=== PATIENT | female | born 1975 | race Hispanic/Latino ===

== ENCOUNTER → 2018-07-07 15:00 | Outpatient (CLI) | payer OTHER, SELFPAY ==
--- NOTE | 2018-07-07 15:03 | DI.MG.S_ITS ---
BILATERAL DIGITAL SCREENING MAMMOGRAM 3D/2D WITH CAD WITH AUGMENTATION: 07/07/2018 CLINICAL: Routine screening. Family history of breast cancer. Comparison is made to exam dated: 07/04/2017 mammogram - [facility]. The tissue of both breasts is heterogeneously dense. This may lower the sensitivity of mammography. Current study was also evaluated with a Computer Aided Detection (CAD) system. There are a grouped fine calcifications in the left breast posterior depth lateral region seen on the craniocaudal view only. No other significant masses, calcifications, or other findings are seen in either breast. IMPRESSION: INCOMPLETE: NEEDS ADDITIONAL IMAGING EVALUATION The grouped fine calcifications in the left breast are indeterminate. Mediolateral, spot magnification, and additional views are recommended. This exam was interpreted at Station ID: [id number]. NOTE: For mammograms, a report in lay terms will be sent to the patient. Approximately 15% of breast malignancies will not be visualized mammographically. In the management of a palpable breast mass, a negative mammogram must not discourage biopsy of a clinically suspicious lesion. Electronically Signed By: Rl viramontes/gavi:07/07/2018 16:36:24 letter sent: Additional Imaging Needed ACR BI-RADS Category 0: Incomplete 3340F
== END ==
DX: Z12.31 Encounter for screening mammogram for malignant neoplasm of breast (principal); Z80.3 Family history of malignant neoplasm of breast
CPT/HCPCS: 77063; 77067

== ENCOUNTER → 2018-07-25 08:27 | Outpatient (CLI) | payer OTHER, SELFPAY ==
--- NOTE | 2018-07-25 08:27 | DI.MG.S_ITS ---
UNILATERAL LEFT DIGITAL DIAGNOSTIC MAMMOGRAM 3D/2D WITH ADDITIONAL VIEWS: 07/25/2018 CLINICAL: Additional evaluation requested from prior study. Comparison is made to exams dated: 07/07/2018 mammogram - [facility] and 07/04/2017 mammogram - [facility]. The tissue of left breast is heterogeneously dense. This may lower the sensitivity of mammography. There are 0.3 cm grouped punctate calcifications in the left breast at 5 o'clock posterior depth which were not seen until recent screening mammogram. No other significant masses or calcifications are seen in the breast. IMPRESSION: PROBABLY BENIGN The 0.3 cm grouped punctate calcifications in the left breast are probably benign. A follow-up left mammogram in 6 months is recommended to demonstrate stability. Of note, the patient reports that she will be having her implants removed in the upcoming months. If there is a clinical requirement to have histological diagnosis before planned surgery, a stereotactic guided biopsy may be considered. This exam was interpreted at Station ID: [id number]. NOTE: For mammograms, a report in lay terms will be sent to the patient. Approximately 15% of breast malignancies will not be visualized mammographically. In the management of a palpable breast mass, a negative mammogram must not discourage biopsy of a clinically suspicious lesion. Electronically Signed By: Curt South M.D. aty/:07/25/2018 11:48:19 letter sent: Followup Recommended ACR BI-RADS Category 3: Probably benign 3343F
== END ==
DX: R92.1 Mammographic calcification found on diagnostic imaging of breast (principal)
CPT/HCPCS: 77065; G0279

== ENCOUNTER → 2019-01-06 13:52 | Outpatient (CLI) | payer OTHER, SELFPAY ==
--- NOTE | 2019-01-06 | DI.MG.S_ITS ---
UNILATERAL LEFT DIGITAL DIAGNOSTIC MAMMOGRAM 3D/2D WITH AUGMENTATION: 01/06/2019 CLINICAL: Patient returns for a 6 month follow up of the left breast. Comparison is made to exams dated: 07/25/2018 mammogram, 07/07/2018 mammogram - [facility], and 07/04/2017 mammogram - [facility]. The tissue of left breast is heterogeneously dense. This may lower the sensitivity of mammography. Previously identified grouped punctate calcifications in the left breast posterior depth lateral region best seen on the craniocaudal view remain stable to prior comparison mammograms of 07/25/18 and 07/07/18. No mammographic findings to explain patient's reported occasional diffuse left breast pain. IMPRESSION: PROBABLY BENIGN 1) Previously identified grouped punctate calcifications in the left breast posterior depth lateral region best seen on the craniocaudal view remain stable to prior comparison mammograms of 07/25/18 and 07/07/18. A follow-up mammogram and possible ultrasound in 6 months is recommended to demonstrate stability. Patient will be due for bilateral screening mammography at that time as well. The patient was advised to monitor her breasts and to return sooner for reevaluation if she feels anything grow or change in her breasts. 2) No mammographic findings to explain patient's reported occasional diffuse left breast pain. Recomend clinical follow-up for further evaluation and management of the patient's symptoms. A breast MRI is recommended for further evaluation if there is continued clinical concern. These results and recommendations were discussed with the patient by telephone at the time of the exam by Dr. Stock. This exam was interpreted at Station ID: [id number]. NOTE: For mammograms, a report in lay terms will be sent to the patient. Approximately 15% of breast malignancies will not be visualized mammographically. In the management of a palpable breast mass, a negative mammogram must not discourage biopsy of a clinically suspicious lesion. Electronically Signed By: Ayan Stock M.D. ecl/:01/06/2019 16:07:51 copy to: Migel Danielle letter sent: Followup Recommended ACR BI-RADS Category 3: Probably benign 3343F
== END ==
DX: R92.8 Other abnormal and inconclusive findings on diagnostic imaging of breast (principal); R92.1 Mammographic calcification found on diagnostic imaging of breast
CPT/HCPCS: 77065; G0279

== ENCOUNTER → 2019-02-12 16:04 | Outpatient (CLI) | payer OTHER, SELFPAY ==
--- NOTE | 2019-02-12 16:06 | DI.MRI.S_ITS ---
BREAST MRI OF BOTH BREASTS- WITH AUGMENTATION: 02/12/2019 CLINICAL: Left breast pain and calcifications. PROCEDURE: MR BREAST BI WO/W CON INDICATIONS: History of left breast calcifications seen on diagnostic mammography. Also reports left breast pain for multiple months involving the entire lateral aspect of the left breast and occasionally radiating through the entire left breast. Bilateral screening mammogram of 07/07/18 identified grouped fine calcifications in the left breast posterior depth lateral region which persisted on diagnostic mammogram of 07/25/18, and for which 6 month followup mammogram was recommended. These calcifications reportedly remained stable on comparison left breast diagnostic mammogram of 01/06/19, and for which continued 6 month followup was recommended. No mammographic findings were identified to explain patient's reported left breast pain at that time. TECHNIQUE: The patient was placed prone in a dedicated breast imaging coil. Precontrast axial STIR and 3D FLASH without fat saturation sequences were obtained. Both before and after bolus injection of contrast, sequential 1-minute axial 3D FLASH with fat saturation sequences for 3 time points, with subtraction images and maximum intensity projections (MIP's) generated. Delayed sagittal FLASH images with fat saturation were also obtained. 20 cc of ProHance intravenous contrast were utilized for this exam. Computer-aided detection, including computer algorithm analysis of MRI image data for lesion detection and characterization, pharmacokinetic analysis, with further physician review for interpretation, was performed. COMPARISON: [facility], DIAGNOSTIC MAMMO IMPLANT LT, 01/06/2019, 14:48. [facility], SPECIAL VIEW LT, 07/25/2018, 8:58. [facility], SCREENING MAMMO IMPLANT BI, 07/07/2018, 15:27. Outside Facility, [facility] SCREENING IMPL BI, 07/04/2017, 15:43. FINDINGS: Image quality: Excellent. There is moderate background parenchymal enhancement. Right breast: There is a retropectoral silicone implant with prominent radial folds and findings suggestive of small intracapsular ruptures. There is mildly increased T2 signal greatest within the medial right breast suggestive of soft tissue edema. There are small oval circumscribed T2 hyperintense foci in the inferior medial right breast posterior depth consistent with nonenlarged intramammary lymph nodes. No suspicious masses or non-mass enhancement is identified. Left breast: There is a retropectoral silicone implant with prominent radial folds and findings findings suggestive of small intracapsular ruptures. There is mildly increased T2 signal greatest within the medial left breast suggestive of soft tissue edema. No suspicious masses or non-mass enhancement is identified. There are no MRI findings to correlate with the previously identified calcifications of the left breast posterior depth lateral region, although these calcifications may be too small to evaluate by MRI. Miscellaneous: No axillary or internal mammary lymphadenopathy. IMPRESSION: PROBABLY BENIGN 1. No MRI findings to correlate with the previously identified calcifications of the left breast posterior depth lateral region seen on comparison mammograms of 07/07/18, 07/25/18, and 01/06/19, which may be too small to evaluate by MRI. Continue mammographic followup recommended, next due in July 2019. The patient is advised to monitor her breast and to return sooner for reevaluation should she feel anything grow or change. 2. Bilateral retropectoral silicone implants with findings suggestive of small intracapsular ruptures (with small extracapsular ruptures/leaks not excluded by this exam). 3. Findings suggestive of mild bilateral breast edema, greatest in the medial regions of the breasts bilaterally. This may be related/reactive to the small implant leaks described above. Clinical followup for further evaluation and management recommended. BIRADS: 3. Probably benign. Follow-up diagnostic mammogram due in July 2019; bilateral mammography will be due at that time as well. COMMENT: The imaging literature indicates that a negative contrast breast MRI examination has a high sensitivity and a moderate specificity for detecting and excluding invasive carcinomas to a detection threshold of 3-5 mm; nonetheless, appropriate clinical and mammographic follow-up are recommended. MRI is not sensitive for detecting DCIS (ductal carcinoma in situ) and may not detect large invasive neoplasms that show only minimal enhancement such as mucinous carcinoma. If there are suspicious calcifications or clinically worrisome palpable masses, then biopsy should still be considered. Invasive neoplasms can be hidden by co-existent and benign enhancement caused by mastitis, hormone therapy effects, radiation therapy, , and recent biopsy or surgery. False positive examinations can occur in a number of circumstances, including breasts that have recently been subject to invasive procedures and those that contain atypical ductal hyperplasia, hormonally stimulated glandular tissue, fat necrosis, or radial scars. This exam was interpreted at Station ID: [id number]. Electronically Signed By: Ayan Stock M.D. ecl/:02/16/2019 11:21:36 copy to: Migel Danielle letter sent: Followup Recommended ACR BI-RADS Category 3: Probably benign 9039P
== END ==
PROVIDERS: PCP Internal Medicine
DX: R92.8 Other abnormal and inconclusive findings on diagnostic imaging of breast (principal); R92.1 Mammographic calcification found on diagnostic imaging of breast; N64.4 Mastodynia; Z98.82 Breast implant status
CPT/HCPCS: 77049; A9579

== ENCOUNTER → 2019-06-04 10:19 | Outpatient (CLI) | payer BC, SELFPAY ==
[2019-06-04 10:54] LABS: Hemoglobin 13.4 g/dL (12.0-16.0); Mean Corpuscular HGB Conc 33.6 % (30-36); Mean Corpuscular Hemoglobin 32.3 PG (26-34); Mean Corpuscular Volume 96.3 fL (80-100); Platelet Count 248 X10^3/uL (150-400); Red Blood Cell Count 4.15 X10^6/uL (4.0-5.2); Red Cell Distribution Width 13.8 % (11.6-14.8); White Blood Cell Count 3.1 X10^3/uL (4.5-11.0)
[2019-06-04 11:19] LABS: Neutrophils Absolute Manual 1643 /uL (3000-5900); RBC Morphology Normal Morphology; Total Cells Counted 100
[2019-06-04 11:24] LABS: Alanine Aminotransferase 13 IU/L (<35); Albumin 4.4 g/dL (3.5-5.0); Albumin Globulin Ratio 1.5 (1.0-2.8); Alkaline Phosphatase 60 U/L (38-126); Aspartate Aminotransferase 23 IU/L (14-36); BUN Creatinine Ratio 15.6 (6-22); Bilirubin Total 0.6 mg/dL (0.2-1.3); Blood Urea Nitrogen 14 mg/dL (7-17); Calcium 9.5 mg/dL (8.4-10.2); Carbon Dioxide 28 mmol/L (22-32); Chloride 103 mmol/L (98-107); Cholesterol 174 mg/dL (140-199); Estimated Glomerular Filt Rate > 60.0 mL/min (>60); Globulin 2.9 g/dL (1.7-4.1); Glucose 84 mg/dL (70-100); HDL Cholesterol 79 mg/dL (40-60); HEMOLYSIS < 15 (0-50); LDL Cholesterol Calculated 83 mg/dL (<100); Sodium 137 mmol/L (137-145); Total Protein 7.3 g/dL (6.3-8.2); Triglycerides 58 mg/dL (35-150)
[2019-06-04 11:42] LABS: Free T3, Triiodothyronine Free 2.52 pg/mL (2.77-5.27)
[2019-06-04 11:55] LABS: Thyroid Stimulating Hormone 2.09 uIU/mL (0.47-4.68)
== END ==
PROVIDERS: PCP Nurse Practitioner; Visit Provider Nurse Practitioner
DX: Z00.00 Encounter for general adult medical examination without abnormal findings (principal)
CPT/HCPCS: 36415; 80053; 80061; 84439; 84443; 84481; 85025

== ENCOUNTER → 2019-07-17 08:09 | Outpatient (CLI) | payer BC, SELFPAY ==
--- NOTE | 2019-07-17 08:10 | DI.MG.S_ITS ---
BILATERAL DIGITAL DIAGNOSTIC MAMMOGRAM 3D/2D WITH AUGMENTATION: 07/17/2019 CLINICAL: Short term follow up left breast. Comparison is made to exams dated: 01/06/2019 mammogram, 07/25/2018 mammogram, 07/07/2018 mammogram - [facility], and 07/04/2017 mammogram - [facility]. The tissue of both breasts is heterogeneously dense. This may lower the sensitivity of mammography. There are 0.3 cm grouped punctate calcifications in the left breast at 5 o'clock posterior depth. These are not significantly changed. No other significant masses, calcifications, or other findings are seen in either breast. IMPRESSION: PROBABLY BENIGN The 0.3 cm grouped punctate calcifications in the left breast are probably benign. A follow-up left mammogram in 6 months is recommended to demonstrate stability. This exam was interpreted at Station ID: [id number]. NOTE: For mammograms, a report in lay terms will be sent to the patient. Approximately 15% of breast malignancies will not be visualized mammographically. In the management of a palpable breast mass, a negative mammogram must not discourage biopsy of a clinically suspicious lesion. Electronically Signed By: Curt michelle/gavi:07/17/2019 09:54:14 copy to: VENECIA POWELL letter sent: Followup Recommended ACR BI-RADS Category 3: Probably benign 3343F
== END ==
PROVIDERS: PCP Nurse Practitioner; Referring Provider Nurse Practitioner; Visit Provider Nurse Practitioner
DX: R92.8 Other abnormal and inconclusive findings on diagnostic imaging of breast (principal); R92.1 Mammographic calcification found on diagnostic imaging of breast; T85.43XA Leakage of breast prosthesis and implant, initial encounter; M25.511 Pain in right shoulder; M25.512 Pain in left shoulder; M54.9 Dorsalgia, unspecified
CPT/HCPCS: 77066; G0279

== ENCOUNTER → 2019-12-31 08:54 | Outpatient (CLI) | payer BC, SELFPAY ==
--- NOTE | 2019-12-31 09:07 | DI.MG.S_ITS ---
Patient Name: AUGUST PELAYO date: 1975 Sex: F Attending Physician: Shashi Indications: Date: 12/31/2019 08:57 At the request of: JOHANNY PRESSLEY Procedure: MM diagnostic mammo unilat LT UNILATERAL LEFT DIGITAL DIAGNOSTIC MAMMOGRAM 3D/2D SHORT-TERM FOLLOWUP: 12/31/2019 CLINICAL: Patient returns for a 6 month follow up of the left breast. Comparison is made to exams dated: 07/17/2019 mammogram, 02/12/2019 breast MRI, 07/25/2018 mammogram, and 07/07/2018 mammogram - [facility]. The tissue of left breast is heterogeneously dense. This may lower the sensitivity of mammography. There are grouped fine calcifications in the left breast at 5 o'clock posterior depth. These are not significantly changed. No other significant masses or calcifications are seen in the breast. IMPRESSION: PROBABLY BENIGN The grouped fine calcifications in the left breast are probably benign. A follow-up mammogram in 6 months is recommended. A follow-up mammogram in 6 months is recommended to demonstrate stability. Patient will be due for screening mammography of the contralateral breast at that time. This exam was interpreted at Station ID: [id number]. NOTE: For mammograms, a report in lay terms will be sent to the patient. Approximately 15% of breast malignancies will not be visualized mammographically. In the management of a palpable breast mass, a negative mammogram must not discourage biopsy of a clinically suspicious lesion. Electronically Signed By: Rl Underwood M.D. ddp/:12/31/2019 09:53:20 copy to: VENECIA POEWLL Continued Report - Page 2 of 2 Patient Name: AUGUST PELAYO date: 1975 Sex: F Attending Physician: Shashi Indications: Date: 12/31/2019 08:57 At the request of: JOHANNY PRESSLEY Procedure: MM diagnostic mammo unilat LT letter sent: Followup Recommended ACR BI-RADS Category 3: Probably benign 3343F
[2019-12-31 10:35] LABS: Hematocrit 36.4 % (36-46); Hemoglobin 12.2 g/dL (12.0-16.0); Mean Corpuscular HGB Conc 33.6 % (30-36); Mean Corpuscular Hemoglobin 31.9 PG (26-34); Mean Corpuscular Volume 94.8 fL (80-100); Platelet Count 245 X10^3/uL (150-400); Red Blood Cell Count 3.84 X10^6/uL (4.0-5.2); Red Cell Distribution Width 13.9 % (11.6-14.8); White Blood Cell Count 3.5 X10^3/uL (4.5-11.0)
[2019-12-31 11:20] LABS: Free T3, Triiodothyronine Free 2.73 pg/mL (2.77-5.27); Free T4, Direct Thyroxine 0.77 ng/dL (0.78-2.19)
[2019-12-31 11:33] LABS: Thyroid Stimulating Hormone 1.82 uIU/mL (0.47-4.68)
== END ==
PROVIDERS: PCP Nurse Practitioner; Referring Provider Nurse Practitioner; Visit Provider Nurse Practitioner
DX: R92.8 Other abnormal and inconclusive findings on diagnostic imaging of breast (principal); R92.1 Mammographic calcification found on diagnostic imaging of breast; D70.9 Neutropenia, unspecified; R79.89 Other specified abnormal findings of blood chemistry
CPT/HCPCS: 36415; 77065; 84439; 84443; 84481; 85027; G0279

== ENCOUNTER → 2020-04-19 13:12 | Outpatient (CLI) | payer BC, SELFPAY | PROVIDERS: PCP Nurse Practitioner; Referring Provider Nurse Practitioner; Visit Provider Nurse Practitioner | DX: Z78.0 Asymptomatic menopausal state (principal) | CPT/HCPCS: 77080 ==

== ENCOUNTER → 2020-04-21 13:46 | Outpatient (CLI) | payer BC, SELFPAY ==
[2020-04-21 14:47] LABS: Add Manual Diff / Slide Review NO; Basophils Absolute Auto 0 /uL (0-100); Basophils Percent Auto 0.8 % (0-2); Eosinophils Absolute Auto 0 /uL (0-450); Eosinophils Percent Auto 0.7 % (2-4); Hematocrit 38.7 % (36-46); Hemoglobin 12.6 g/dL (12.0-16.0); Lymphocytes Absolute Auto 1800 /uL (1100-4500); Lymphocytes Percent Auto 37.6 % (25-40); Mean Corpuscular HGB Conc 32.5 % (30-36); Mean Corpuscular Hemoglobin 30.9 PG (26-34); Mean Corpuscular Volume 95.2 fL (80-100); Monocytes Absolute Auto 500 /uL (0-900); Monocytes Percent Auto 9.7 % (3-14); Neutrophils Absolute Auto 2400 /uL (1500-7000); Neutrophils Percent Auto 51.2 % (50-75); Platelet Count 240 X10^3/uL (150-400); Red Blood Cell Count 4.06 X10^6/uL (4.0-5.2); Red Cell Distribution Width 13.5 % (11.6-14.8); White Blood Cell Count 4.7 X10^3/uL (4.5-11.0)
== END ==
PROVIDERS: PCP Nurse Practitioner; Referring Provider Nurse Practitioner; Visit Provider Nurse Practitioner
DX: D72.819 Decreased white blood cell count, unspecified (principal)
CPT/HCPCS: 36415; 85025

== ENCOUNTER → 2020-06-21 13:21 | Outpatient (CLI) | payer OTHER, SELFPAY ==
--- NOTE | 2020-06-21 13:24 | DI.MG.S_ITS ---
BILATERAL DIGITAL DIAGNOSTIC MAMMOGRAM 3D/2D SHORT-TERM FOLLOW-UP: 06/21/2020 CLINICAL: Short term follow up of the left breast, due for bilateral imaging. Comparison is made to exams dated: 12/31/2019 mammogram, 07/17/2019 mammogram, 01/06/2019 mammogram, 07/25/2018 mammogram, and 07/07/2018 mammogram - [facility]. The tissue of both breasts is heterogeneously dense. This may lower the sensitivity of mammography. There are benign grouped fine calcifications in the left breast at 5 o'clock posterior depth. These are less prominent. There also is a benign asymmetry in the left breast at 1 o'clock anterior depth. This is not seen in additional views. No other significant masses, calcifications, or other findings are seen in either breast. IMPRESSION: BENIGN There is no mammographic evidence of malignancy. Return to annual mammogram screening schedule is recommended. This exam was interpreted at Station ID: [id number]. NOTE: For mammograms, a report in lay terms will be sent to the patient. Approximately 15% of breast malignancies will not be visualized mammographically. In the management of a palpable breast mass, a negative mammogram must not discourage biopsy of a clinically suspicious lesion. Electronically Signed By: Adams Delong acr/:06/22/2020 11:03:00 copy to: VENECIA POWELL letter sent: Normal Exam ACR BI-RADS Category 2: Benign Finding(s) 3342F
== END ==
PROVIDERS: PCP Nurse Practitioner; Referring Provider Nurse Practitioner; Visit Provider Nurse Practitioner
DX: R92.8 Other abnormal and inconclusive findings on diagnostic imaging of breast (principal)
CPT/HCPCS: 77066; G0279

== ENCOUNTER → 2021-07-04 17:07 | Outpatient (CLI) | payer OTHER, SELFPAY ==
--- NOTE | 2021-07-04 | DI.MG.S_ITS ---
BILATERAL DIGITAL SCREENING MAMMOGRAM 3D/2D WITH CAD: 07/04/2021 CLINICAL: Routine screening. Family history of breast cancer. Comparison is made to exams dated: 06/21/2020 mammogram, 07/17/2019 mammogram, 01/06/2019 mammogram, 07/07/2018 mammogram, and 12/31/2019 mammogram - [facility]. The tissue of both breasts is heterogeneously dense. This may lower the sensitivity of mammography. Current study was also evaluated with a Computer Aided Detection (CAD) system. There is a biopsy clip in the left breast. No significant masses, calcifications, or other findings are seen in either breast. There has been no significant interval change. IMPRESSION: NEGATIVE There is no mammographic evidence of malignancy. A 1 year screening mammogram is recommended. This exam was interpreted at Station ID: [id number]. NOTE: For mammograms, a report in lay terms will be sent to the patient. Approximately 15% of breast malignancies will not be visualized mammographically. In the management of a palpable breast mass, a negative mammogram must not discourage biopsy of a clinically suspicious lesion. Electronically Signed By: Von ackerman/gavi:07/05/2021 14:29:09 copy to: VENECIA POWELL letter sent: Normal Exam ACR BI-RADS Category 1: Negative 3341F
== END ==
PROVIDERS: PCP Nurse Practitioner; Referring Provider Nurse Practitioner; Visit Provider Nurse Practitioner
DX: Z12.31 Encounter for screening mammogram for malignant neoplasm of breast (principal); Z80.3 Family history of malignant neoplasm of breast
CPT/HCPCS: 77063; 77067

== ENCOUNTER → 2022-05-15 07:26 | Outpatient (CLI) | payer BC, SELFPAY ==
[2022-05-15 08:23] LABS: Influenza A - CEPHEID Flu A NEGATIVE (NEGATIVE); Influenza B - CEPHEID Flu B NEGATIVE (NEGATIVE); Respiratory Syncytial Virus Negative (Negative)
[2022-05-15 08:28] LABS: COVID-19 CEPHEID 4-PLEX PCR Negative (Negative)
== END ==
PROVIDERS: PCP Nurse Practitioner; Visit Provider Registered Nurse
DX: R05.1 Acute cough (principal); Z20.822 Contact with and (suspected) exposure to COVID-19
CPT/HCPCS: 0241U

== ENCOUNTER → 2022-07-11 15:14 | Outpatient (CLI) | payer BC, SELFPAY ==
--- NOTE | 2022-07-11 | DI.MG.S_ITS ---
BILATERAL DIGITAL SCREENING MAMMOGRAM 3D/2D WITH CAD: 07/11/2022 CLINICAL: Routine screening. Family history of breast cancer. Comparison is made to exams dated: 07/04/2021 mammogram, 06/21/2020 mammogram, 07/17/2019 mammogram, and 07/07/2018 mammogram - [facility]. Both breasts are heterogeneously dense, which may obscure small masses (category c / 51-75% glandular tissue). Current study was also evaluated with a Computer Aided Detection (CAD) system. There is a biopsy clip in the left breast. No significant masses, calcifications, or other findings are seen in either breast. There has been no significant interval change. IMPRESSION: NEGATIVE There is no mammographic evidence of malignancy. A 1 year screening mammogram is recommended. Based on Tyrer-Cuzick model (a risk assessment model), the patient's lifetime risk is 37.4% and her 10 year risk is 9.9%. If a patient has an elevated risk, a more comprehensive evaluation should be considered and/or a referral to a genetic counselor. The [employer] [employer], [employer], and NCCN Guidelines advise the consideration of Breast MRI as an adjunct to screening mammography in patients whose Lifetime risk to develop breast cancer is 20% or higher. This exam was interpreted at Station ID: [id number]. NOTE: For mammograms, a report in lay terms will be sent to the patient. Approximately 15% of breast malignancies will not be visualized mammographically. In the management of a palpable breast mass, a negative mammogram must not discourage biopsy of a clinically suspicious lesion. Electronically Signed By: Von ackerman/gavi:07/12/2022 07:54:46 copy to: VENECIA POWELL letter sent: Normal Exam ACR BI-RADS Category 1: Negative 3341F
== END ==
PROVIDERS: PCP Nurse Practitioner; Referring Provider Nurse Practitioner; Visit Provider Nurse Practitioner
DX: Z12.31 Encounter for screening mammogram for malignant neoplasm of breast (principal); Z80.3 Family history of malignant neoplasm of breast
CPT/HCPCS: 77063; 77067

== ENCOUNTER → 2023-11-13 13:04 | Outpatient (CLI) | payer BC, SELFPAY ==
[2023-11-13 13:23] LABS: Hematocrit 36.5 % (36-46); Hemoglobin 12.2 g/dL (12.0-16.0); Mean Corpuscular HGB Conc 33.4 % (30-36); Mean Corpuscular Hemoglobin 31.3 PG (26-34); Mean Corpuscular Volume 93.5 fL (80-100); Platelet Count 287 X10^3/uL (150-400); Red Cell Distribution Width 13.7 % (11.6-14.8); White Blood Cell Count 4.1 X10^3/uL (4.5-11.0)
[2023-11-13 13:52] LABS: Alanine Aminotransferase 14 IU/L (<35); Albumin 4.2 g/dL (3.5-5.0); Albumin Globulin Ratio 1.6 (1.0-2.8); Alkaline Phosphatase 72 U/L (38-126); Aspartate Aminotransferase 26 IU/L (14-36); Bilirubin Total 0.5 mg/dL (0.2-1.3); Blood Urea Nitrogen 15 mg/dL (7-17); C-Reactive Protein Quant < 0.5 mg/dL (<1.0); Carbon Dioxide 31 mmol/L (22-32); Chloride 105 mmol/L (98-107); Cholesterol 199 mg/dL (140-199); Estimated Glomerular Filt Rate > 60 mL/min (>60); Globulin 2.6 g/dL (1.7-4.1); Glucose 64 mg/dL (70-100); HDL Cholesterol 96 mg/dL (40-60); HEMOLYSIS < 15 (0-50); LDL Cholesterol Calculated 89 mg/dL (<100); Potassium 3.9 mmol/L (3.4-5.1); Sodium 140 mmol/L (137-145); Total Protein 6.8 g/dL (6.3-8.2); Triglycerides 71 mg/dL (35-150)
[2023-11-13 14:07] LABS: Erythrocyte Sedimentation Rate 5 MM/HR (0-20)
[2023-11-13 14:08] LABS: Free T3, Triiodothyronine Free 3.08 pg/mL (2.77-5.27); Free T4, Direct Thyroxine 0.92 ng/dL (0.78-2.19)
[2023-11-13 14:22] LABS: Thyroid Stimulating Hormone 0.977 uIU/mL (0.47-4.68)
[2023-11-13 16:46] LABS: Creatinine Urine Random 210.36 mg/dL
[2023-11-13 16:52] LABS: Microalbumin Urine Random 0.9 mg/dL (0-1.6)
[2023-11-13 17:02] LABS: Follicle Stimulating Hormone 132 mIU/mL
[2023-11-14 16:10] LABS: HIV 1 & 2 Ab/Ag 4th Gen Combo NEGATIVE (NEGATIVE); Hep C Virus Ab w/Reflex Quant NEGATIVE s/c (NEGATIVE)
== END ==
PROVIDERS: PCP Nurse Practitioner; Referring Provider Nurse Practitioner; Visit Provider Nurse Practitioner
DX: O09.899 Supervision of other high risk pregnancies, unspecified trimester (principal); R53.83 Other fatigue
CPT/HCPCS: 36415; 80053; 80061; 82043; 82570; 83001; 84439; 84443; 84481; 85027; 85651; 86140; 86803; 87389

== ENCOUNTER → 2023-11-26 06:36 | Outpatient (CLI) | payer BC, SELFPAY ==
--- NOTE | 2023-11-26 06:37 | DI.US.S_ITS ---
PROCEDURE: US PELVIC COMPLETE INDICATIONS: PMB. no provided history of patient being on tamoxifen. TECHNIQUE: Real-time scanning was performed of the pelvic organs, with image documentation. Additional endovaginal scanning was necessary due to incomplete visualization of the adnexal and endometrial structures by transabdominal scanning. COMPARISON: None. FINDINGS: Uterus: Uterus is normal in size at 6.4 x 2.9 cm. The myometrium is homogeneous. The endometrium measures 4 mm combined thickness. Ovaries: The right ovary measures 1.2 x 1.8 x 1.1 cm. The left ovary measures 1.5 x 2.3 x 1 cm. The ovaries have a normal sonographic appearance. Less than 12 follicles can be seen in each ovary. No adnexal masses are seen. Other: No pathologic free abdominal or pelvic fluid. IMPRESSION: 1. No pathologic processes seen in the uterus to explain the patient's postmenopausal bleeding. The endometrium is normal in thickness for a postmenopausal patient. 2. The ovaries are within normal limits. Dictated by: Ehsan Iqbal M.D. on 11/26/2023 at 10:25 Approved by: Ehsan Iqbal M.D. on 11/26/2023 at 10:40
== END ==
PROVIDERS: PCP Nurse Practitioner; Referring Provider Nurse Practitioner; Visit Provider Nurse Practitioner
DX: N95.0 Postmenopausal bleeding (principal)
CPT/HCPCS: 76830; 76856

== ENCOUNTER → 2023-12-17 13:01 | Outpatient (CLI) | payer BC, SELFPAY ==
--- NOTE | 2023-12-17 13:02 | DI.MG.S_ITS ---
BILATERAL DIGITAL SCREENING MAMMOGRAM 3D/2D WITH CAD: 12/17/2023 CLINICAL: Routine screening. Family history of breast cancer. Comparison is made to exams dated: 07/11/2022 mammogram, 07/04/2021 mammogram, and 06/21/2020 mammogram - [facility]. Both breasts are heterogeneously dense, which may obscure small masses (category c / 51-75% glandular tissue). Current study was also evaluated with a Computer Aided Detection (CAD) system. There is a biopsy clip in the left breast. No significant masses, calcifications, or other findings are seen in either breast. There has been no significant interval change. IMPRESSION: BENIGN There is no mammographic evidence of malignancy. A 1 year screening mammogram is recommended. Based on Tyrer-Cuzick model (a risk assessment model), the patient's lifetime risk is 37.4% and her 10 year risk is 10.4%. If a patient has an elevated risk, a more comprehensive evaluation should be considered and/or a referral to a genetic counselor. The [place] [employer], [employer], and NCCN Guidelines advise the consideration of Breast MRI as an adjunct to screening mammography in patients whose Lifetime risk to develop breast cancer is 20% or higher. This exam was interpreted at Station ID: [id number]. NOTE: For mammograms, a report in lay terms will be sent to the patient. Approximately 15% of breast malignancies will not be visualized mammographically. In the management of a palpable breast mass, a negative mammogram must not discourage biopsy of a clinically suspicious lesion. Electronically Signed By: Kizzy Price M.D., Ph.D. chaim/gavi:12/17/2023 14:31:18 copy to: VENECIA POWELL letter sent: Normal Exam ACR BI-RADS Category 2: Benign Finding(s) 3342F
== END ==
PROVIDERS: PCP Nurse Practitioner; Referring Provider Nurse Practitioner; Visit Provider Nurse Practitioner
DX: Z12.31 Encounter for screening mammogram for malignant neoplasm of breast (principal); Z80.3 Family history of malignant neoplasm of breast; R92.333 Mammographic heterogeneous density, bilateral breasts
CPT/HCPCS: 77063; 77067

== ENCOUNTER 2024-01-17 07:03 | Day surgery (SDC) | payer BC, SELFPAY ==
[2024-01-17] MEDS: LACTATED RINGERS 1,000 ML 150 ML IV (07:27)
[2024-01-17] MEDS: ONDANSETRON 4 MG/2 ML INJ IV (07:36)
[2024-01-17 07:37] VITALS: BP 99/68; PULSE 74; RESP 16; TEMP 36.6; O2SAT 97
--- NOTE | 2024-01-17 08:14 | PM.HP.1 ---
History of Present Illness History of Present Illness Date Patient Seen: 01/17/24 Time Patient Seen: 08:14 Chief complaint: Screening Colonoscopy Narrative: First colonoscopy for colon cancer screening. No family history and no symptoms at this time. [facility] Medical History Post-menopausal Skin nodule Vision disorder Chicken pox (~1983) Breast implant leak Breast implant removal status Surgical History Anesthesia Hx of breast implants, bilateral (~02/2007) Family History Mother Breast cancer Sister Endometriosis Grandfather Breast cancer Social History Smoking Status: Never smoker Meds Home Medications and Allergies Home Medications Medication Instructions Recorded Confirmed Type estradiol 0.0375 mg/24 hr 1 patch transdermal 2XW #24 ea 12/03/23 12/03/23 Rx semiweekly transdermal patch progesterone micronized 100 mg See Rx Instructions .Route 12/03/23 12/03/23 Rx capsule .COMPLEX #90 caps Allergies Allergy/AdvReac Type Severity Reaction Status Date / Time No Known Drug Allergies Allergy Verified 01/17/24 07:28 Review of Systems Review of Systems ROS: Yes All systems reviewed with the patient and are negative except as otherwise documented Exam Vital Signs (past 8 hours): - 01/17/24 07:37 Temperature 98 F Pulse Rate 74 Respiratory Rate 16 Blood Pressure 99/68 Pulse Oximetry 97 Oxygen Delivery Method Room Air Oxygen Delivery Method Room Air Const General: cooperative, healthy appearing and comfortable [facility] Head: normocephalic and atraumatic Ears: hearing grossly normal bilaterally Face and sinus: normal facial exam Eyes Sclera: sclerae normal Neck Neck: trachea midline Resp Effort & Inspection: normal respiratory effort and able to speak in complete sentences Cardio Rate: regular rate Rhythm: regular rhythm GI Palpation: soft and No tender Skin General: elasticity normal and turgor normal Neuro General: patient alert, patient awake and patient oriented x3 Cognition: normal cognition Psych Mental Status: mental status grossly normal Judgment: judgment good Assessment & Plan Assessment & Plan narrative: Colon cancer screening using colonoscopy and anesthesia Time-Based Coding :: [TOTAL MINUTES] spent with patient and on the chart (including review of chart, obtaining history, exam, reviewing outside data, placing orders, documenting exam and treatment plan, and counseling patient) on [DATE].
[2024-01-17 08:44] VITALS: BP 93/59; PULSE 68; RESP 15; TEMP 36.2; O2SAT 98
--- NOTE | 2024-01-17 08:44 | PM.OP.COLON ---
Operative Date/Time/Diagnoses Date of procedure: 01/17/24 Time of procedure: 08:45 Pre-op diagnosis: Colon cancer screening Post-op diagnosis: same Procedure & Clinicians Study performed: Colonoscopy with anesthesia Same procedure as scheduled: Yes Indications: Colon cancer screening Surgeon: Thuy Draper Procedure Notes Procedure in detail: Preop diagnosis: Colon cancer screening Postop diagnosis: Same Operative procedure: Colonoscopy with anesthesia Surgeon: Mayi Draper MD Findings: No diverticulosis, no polyps Procedure: Patient placed in lateral position. Rectal exam performed showing normal tone no masses. Colonoscope inserted into the rectum and advanced to ileocecal valve with minimal difficulty. Retroflex was included in the rectum. Impression: Normal colonoscopy. No diverticulosis, no polyps identified. Plan: Repeat colonoscopy in 10 years unless otherwise indicated by change in clinical condition Specimen(s): none sent Complications: none Post-procedure Recommendations: Colonoscopy in 10 years Follow up: as needed Disposition: PACU
[2024-01-17 08:47] VITALS: BP 89/59; PULSE 70; RESP 14; O2SAT 98
[2024-01-17 08:52] VITALS: BP 91/61; PULSE 72; RESP 14; O2SAT 98
[2024-01-17 08:56] VITALS: BP 91/63; PULSE 66; RESP 17; O2SAT 100
[2024-01-17 09:01] VITALS: BP 98/68; PULSE 69; RESP 16; TEMP 36.7; O2SAT 100
== END 2024-01-17 09:27 | disposition home or self-care (01) ==
PROVIDERS: Referring Provider Surgery; Visit Provider Surgery
PROC: 0DJD8ZZ Inspection of Lower Intestinal Tract, Via Natural or Artificial Opening Endoscopic (ICD-10-PCS; CPT 45378; principal; 2024-01-17 08:15)
DX: Z12.11 Encounter for screening for malignant neoplasm of colon (principal)
CPT/HCPCS: 45378; J2405; J2704

== ENCOUNTER → 2024-02-14 07:46 | Outpatient (CLI) | payer BC, SELFPAY ==
--- NOTE | 2024-02-14 07:47 | DI.MRI.S_ITS ---
SCREENING BREAST MRI OF BOTH BREASTS: 02/14/2024 CLINICAL: High risk screening. PROCEDURE: MR BREAST BI WO/W CON INDICATIONS: >20% lifetime risk for breast cancer TECHNIQUE: The patient was placed prone in a dedicated breast imaging coil. Precontrast axial STIR and 3D FLASH without fat saturation sequences were obtained. Both before and after bolus injection of contrast, sequential 1-minute axial 3D FLASH with fat saturation sequences for 3 time points, with subtraction images and maximum intensity projections (MIP's) generated. Delayed sagittal FLASH images with fat saturation were also obtained. CONTRAST: 20 cc Prohance. Computer-aided detection, including computer algorithm analysis of MRI image data for lesion detection and characterization, pharmacokinetic analysis, with further physician review for interpretation, was performed. COMPARISON: [facility], MR, MR BREAST BI WO/W CON, 02/12/2019, 16:49. FINDINGS: Image quality: Excellent. There is mild background parenchymal enhancement. Right breast: No mass or suspicious enhancement. Left breast: No mass or suspicious enhancement. Biopsy clip noted. Miscellaneous: No enlarged lymph nodes. IMPRESSION: BENIGN No mass or suspicious enhancement. No enlarged lymph nodes. BIRADS 2. A 1 year screening mammogram is recommended. 12/17/2024 Recommend continued screening breast MRI. COMMENT: The imaging literature indicates that a negative contrast breast MRI examination has a high sensitivity and a moderate specificity for detecting and excluding invasive carcinomas to a detection threshold of 3-5 mm; nonetheless, appropriate clinical and mammographic follow-up are recommended. MRI is not sensitive for detecting DCIS (ductal carcinoma in situ) and may not detect large invasive neoplasms that show only minimal enhancement such as mucinous carcinoma. If there are suspicious calcifications or clinically worrisome palpable masses, then biopsy should still be considered. Invasive neoplasms can be hidden by co-existent and benign enhancement caused by mastitis, hormone therapy effects, radiation therapy, , and recent biopsy or surgery. False positive examinations can occur in a number of circumstances, including breasts that have recently been subject to invasive procedures and those that contain atypical ductal hyperplasia, hormonally stimulated glandular tissue, fat necrosis, or radial scars. Dictated by: Von Flood M.D. on 02/14/2024 at 17:41 This exam was interpreted at Station ID: [id number]. Electronically Signed By: Von Flood M.D. slc/:02/14/2024 17:49:01 copy to: VENECIA POWELL letter sent: Normal Exam ACR BI-RADS Category 2: Benign
== END ==
PROVIDERS: PCP Family Medicine; Referring Provider Physician Assistant; Visit Provider Physician Assistant
DX: N95.0 Postmenopausal bleeding (principal); Z91.89 Other specified personal risk factors, not elsewhere classified; Z12.39 Encounter for other screening for malignant neoplasm of breast; Z80.3 Family history of malignant neoplasm of breast; Z79.890 Hormone replacement therapy
CPT/HCPCS: 77049; A9579